=== PATIENT | male | born 1960 | race Caucasian/White ===

== ENCOUNTER 2019-01-10 11:56 | Emergency (ER) | payer OTHER ==
[~2019-01-10] VITALS: Wt 79.8 kg
[2019-01-10] MEDS ORDERED: PERCOCET 5-3251 EACH PO (14:13)
== END 2019-01-10 14:19 | disposition home or self-care (01) ==
LOC: ED 11:56
DX: S52.511A Displaced fracture of right radial styloid process, initial encounter for closed fracture (principal); S52.512A Displaced fracture of left radial styloid process, initial encounter for closed fracture; S80.812A Abrasion, left lower leg, initial encounter; S80.811A Abrasion, right lower leg, initial encounter; S00.31XA Abrasion of nose, initial encounter; W10.9XXA Fall (on) (from) unspecified stairs and steps, initial encounter; Y93.89 Activity, other specified; Y92.89 Other specified places as the place of occurrence of the external cause; Y99.8 Other external cause status